=== PATIENT | male | born 1955 | race Caucasian/White ===

== ENCOUNTER 2023-01-28 14:30 | Emergency (ER) | payer OTHER | END 2023-01-28 16:24 | disposition home or self-care (01) | LOC: CSHERS 14:30 | DX: S00.01XA Abrasion of scalp, initial encounter (principal); W22.8XXA Striking against or struck by other objects, initial encounter | CPT/HCPCS: 70450 ==

== ENCOUNTER 2023-02-01 10:59 | Emergency (ER) | payer OTHER ==
[2023-02-01] MEDS ORDERED: HYDROcodone/Acetaminophen 10/325 mg Tablet ONE (12:05)
== END 2023-02-01 13:50 | disposition home or self-care (01) ==
LOC: CSHERS 10:59
DX: M62.838 Other muscle spasm (principal)
CPT/HCPCS: 72125